=== PATIENT | female | born 1970 | race Asian ===

== ENCOUNTER 2021-06-03 08:22 | Outpatient (CLI) | payer BC | END 2021-06-03 08:23 | disposition home or self-care (01) | LOC: CSHMAMMO 08:22 | PROVIDERS: ATTEND Family Medicine | DX: Z12.31 Encounter for screening mammogram for malignant neoplasm of breast (principal) | CPT/HCPCS: 77063; 77067 ==

== ENCOUNTER 2024-05-23 08:26 | Outpatient (CLI) | payer BC | END 2024-05-23 08:27 | disposition home or self-care (01) | LOC: CSHCT 08:26 | PROVIDERS: ATTEND Family Medicine | DX: R51.9 Headache, unspecified (principal); R42 Dizziness and giddiness | CPT/HCPCS: 70450 ==

== ENCOUNTER 2024-12-29 08:31 | Outpatient (CLI) | payer BC | END 2024-12-29 08:32 | disposition home or self-care (01) | LOC: CSHMAMMO 08:31 | PROVIDERS: ATTEND Family Medicine | DX: Z12.31 Encounter for screening mammogram for malignant neoplasm of breast (principal); N64.89 Other specified disorders of breast | CPT/HCPCS: 77063; 77067 ==